=== PATIENT | male | born 2000 ===

== ENCOUNTER 2021-05-30 02:09 | Emergency (ER) | payer OTHER ==
--- NOTE | 2021-05-30 03:09 | EDM.PDOC ---
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 Has pain, swelling. Some numbness where hammer hit the hand. No laceration. No other injuries reported. 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 [No Known Home Meds] 05/30/21 [History] Past Medical History - Past Health History Medical/Surgical History: Denies Medical/Surgical History Social & Family History - Tobacco Use Tobacco Use Status *Q: Current Every Day Tobacco User Years of Tobacco use: 10 Packs/Tins Daily: 0.5 - Caffeine Use Caffeine Use: Reports: Soda - Recreational Drug Use Recreational Drug Use: Yes Drug Use in Last 12 Months: No Recreational Drug Type: Reports: Marijuana/Hashish Recreational Drug Use Frequency: Weekly Review of Systems - Review of Systems Review Of Systems: See Below Musculoskeletal: Reports: Hand Pain Skin: Reports: No Symptoms Neurological: Reports: Numbness ED EXAM, GENERAL - Physical Exam Exam: See Below Exam Limited By: No Limitations General Appearance: Alert, WD/WN, No Apparent Distress Eye Exam: Bilateral Eye: EOMI, PERRL Ears: Hearing Grossly Normal Throat/Mouth: Normal Voice, No Airway Compromise Head: Atraumatic, Normocephalic Neck: Supple Respiratory/Chest: No Respiratory Distress Cardiovascular: Normal Peripheral Pulses Extremities: Normal Capillary Refill, Other (No bruising/redness noted. Skin intact. Tender with mild swelling mid/distal right 4th metacarpal. Patient reports skin in this area is also a bit numb. Unable to make fist due to discomfort in that area. Wrist and fingers non-tender. ) Neurological: Alert, Oriented, Normal Cognition, Normal Gait Psychiatric: Normal Affect, Normal Mood Skin Exam: Warm, Dry, Intact, Normal Color Course - Vital Signs Last Recorded V/S: Last Vital Signs Temp 37.9 C 05/30/21 02:35 Pulse 85 05/30/21 02:35 Resp 14 05/30/21 02:35 BP 119/65 05/30/21 02:35 Pulse Ox 99 05/30/21 02:35 - Orders/Labs/Meds Orders: Active Orders 24 hr Category Date Time Status Hand Comp Min 3V Rt [CR] Stat Exams 05/30/21 02:13 Ordered Meds: Medications Discontinued Medications Generic Name Dose Route Start Last Admin Trade Name Mikie PRN Reason Stop Dose Admin Tramadol HCl 50 mg 05/30/21 03:12 Tramadol 50 Mg Tab PO 05/30/21 03:13 ONETIME ONE - Re-Assessments/Exams Free Text/Narrative Re-Assessment/Exam: 05/30/21 03:16 Xrays taken/no obvious fracture. 4th metacarpal however appears slightly bowed compared to rest of metacarpals. Plan at this time is to apply pre-jim hand splint for protection and have patient follow up at Ortho walk in [facility] tomorrow for recheck. Placed off work until . Single Tramadol ordered. Ice/rest/splinting recommended along with PRN Aleve/motrin and/or Tylenol. Departure - Departure Time of Disposition: 03:07 Disposition: Home, Self-Care 01 Condition: Good Clinical Impression: Contusion of hand, right Qualifiers: Encounter type: initial encounter Qualified Code(s): S60.221A - Contusion of right hand, initial encounter - Discharge Information *PRESCRIPTION DRUG MONITORING PROGRAM REVIEWED*: Not Applicable *COPY OF PRESCRIPTION DRUG MONITORING REPORT IN PATIENT ROGER: Not Applicable Instructions: Hand Contusion, [id number] Referrals: PCP,None [Primary Care Provider] - Forms: ED Department Discharge Additional Instructions: No work for three days. Follow up Ortho walk-in clinic at [place] tomorrow. Further restrictions as needed per Ortho. Ice/splint and Tylenol/Aleve as needed for pain. Sepsis Event Note (ED) - Evaluation Sepsis Screening Result: No Definite Risk - Focused Exam Vital Signs: Vital Signs Temp Pulse Resp BP Pulse Ox 05/30/21 02:35 37.9 C 85 14 119/65 99 - My Orders Last 24 Hours: My Active Orders 05/30/21 02:13 Hand Comp Min 3V Rt [CR] Stat - Assessment/Plan Last 24 Hours: My Active Orders 05/30/21 02:13 Hand Comp Min 3V Rt [CR] Stat
[2021-05-30] MEDS ORDERED: traMADol 50 MG Tab PO ONE (03:12)
== END 2021-05-30 03:30 | disposition home or self-care (01) ==
LOC: LL.ED 02:09
DX: S60.221A Contusion of right hand, initial encounter (principal); Z72.0 Tobacco use; W22.09XA Striking against other stationary object, initial encounter
CPT/HCPCS: 73130-RT; 99283; 99283-25